=== PATIENT | male | born 2000 | race Caucasian/White ===

== ENCOUNTER 2020-01-18 10:16 | Outpatient (NON) | payer OTHER, SELFPAY ==
[2020-01-18 23:36] LABS: SARS-CoV-2 RNA PCR Negative
== END 2020-01-18 10:17 ==
LOC: ANHCOVIDDT 10:17
PROVIDERS: PCP Family Medicine; Visit Provider Physician Assistant Medical
DX: Z20.828 Contact with and (suspected) exposure to other viral communicable diseases (principal); J02.9 Acute pharyngitis, unspecified; R50.9 Fever, unspecified; R52 Pain, unspecified
CPT/HCPCS: 87635; C9803; U0003

== ENCOUNTER 2021-08-24 01:02 | Day surgery (SDC) | payer OTHER, SELFPAY ==
[2021-08-17 10:56] VITALS: BMI 44.4
--- NOTE | 2021-08-17 11:01 | PC.NURSE ---
Report to the Outpatient Waiting Room, entrance under the green pavilion located off [facility], at time 10am on date 08/24/21OR Time: 12pm - You and your visitor will be asked a series of questions to screen for COVID 19 for your protection. - Only one visitor is allowed at this time. - The patient visitor is requested to leave or wait in car when not with patient. - A mask is required within the hospital. Patients may have clear liquids (water, carbonated beverages, clear teas, apple juice) until 3 hours prior to surgery with a maximum of 20 ounces. - No food from midnight until time of surgery stop at 9am Take the following medications with a SIP of water the morning of surgery: Fluoxetine for anxiety if needed Medications to discontinue per physician __NA__ Date to take last dose__NA___ Please no make-up, nail mongolian, hairspray, perfume, deodorant, or body powder the day of surgery. No jewelry (including any body piercings) or valuables the day of surgery, leave them at home. Please take a shower or bath the night before, or the morning of, surgery with an antibacterial soap. Wear comfortable, loose fitting clothing. Children are encouraged to wear pajamas. - Jewelry must be removed prior to entering the operating room. Rings and piercings that are not removed may be cut off. - The hospital will not accept responsibility for valuables. - Please leave all valuables, including medications, at home the day of surgery. If you are going home after surgery, a licensed mail truck driver must drive you home. - NO public transportation without another adult. - We recommend that an adult stay with you for 24 hours following discharge. - We also recommend that you do not drive, make important decision, drink alcoholic beverages, or take any drugs that were not prescribed by your health care provider for at least 24 hours after your discharge time. For Pediatric surgeries, we recommend two adults accompany the child home (only one inside the building at this time). Follow any additional instructions given to you from your surgeon. If you or anyone in your household have experienced Covid symptoms in the past week, please notify your surgeon or the nurse liaison at the phone number below for possible testing. Telephone instructions given to patient Santiago and asked if any additional questions and then verbalized understanding. Patient advised to call surgeon office or pre surgery nurse liaison [phone] if any additional questions.
--- NOTE | 2021-08-23 10:03 | PM.IMHP ---
H&P: HPI History of Present Illness Date/Time: 08/23/21 10:03 Chief Complaint: Chronic tonsillitis recurrent tonsillitis Tonsil stones halitosis Narrative: patient presents for planned surgical procedures no change in symptoms no change in history PMFSH Family History Family History Father Hypertension Family history of elevated blood lipids Family history of malignant neoplasm of testis Grandparent Family history of elevated blood lipids Family history of cardiovascular disease Family history of malignant neoplasm Mother Family history of malignant neoplasm of breast Hypertension Grandparent Asthma Sibling Asthma Other Depression Social History Social History Smoking status: Never smoker Second hand tobacco smoke exposure: No Alcohol intake: never Substance use: never Substance use type: does not use Living arrangements: with family Spiritual care concerns: No Meds Home Medications and Allergies Home Medications Medication Instructions Recorded Confirmed Type fluoxetine 40 mg capsule 40 mg PO DAILY #90 caps 07/25/21 08/17/21 Rx Allergies Allergy/AdvReac Type Severity Reaction Status Date / Time No Known Allergies Allergy Verified 08/09/21 14:38 Exam Narrative: normal exam other than cryptic odd looking tonsils to 3+. Stones present. Assessment and Plan Assessment and plan (1) Recurrent tonsillitis: Code(s): J03.91 - Acute recurrent tonsillitis, unspecified Status: Acute Assessment and Plan: plan is for the operating room for tonsillectomy may look at adenoid pad while there if adenoid pad persists.? Risks were discussed including bleeding infection damage to surrounding structures need for further procedures postoperative bleeding 3-5% tooth pain ear pain throat pain trismus numbness loose dentition damage to any structure during the induction and or maintenance of anesthesia. (2) Halitosis: Code(s): R19.6 - Halitosis Status: Acute (3) Chronic tonsillitis: Code(s): J35.01 - Chronic tonsillitis Status: Acute (4) Tonsillolith: Code(s): J35.8 - Other chronic diseases of tonsils and adenoids Status: Acute
[2021-08-24] VITALS (8 sets, daily range): BP systolic 104–142; BP diastolic 58–94; PULSE 90–102; RESP 12–20; TEMP 36.8; O2SAT 94–100
--- NOTE | 2021-08-24 07:19 | WPDHPUPDATE1 ---
History and Physical Update Update Date/Time: 08/24/21 07:19 History and Physical has been reviewed, including an updated exam of the patient. There are NO changes in the patient's condition. Risks, benefits, and alternatives have been discussed and questions answered. Patient agrees to proceed with procedure.
[2021-08-24] MEDS: ACETAMINOPHEN 500 MG TABLET 1000 MG PO (11:03)
[2021-08-24] MEDS: LACTATED RINGERS 1,000 ML 30 ML IV CONT ×2 (11:15→13:10)
--- NOTE | 2021-08-24 11:43 | P.PNAN_ITS ---
Anes - Initial Pre Proc Eval Procedure: Operation Date: 08/24/21 12:30 Proposed Procedures p Tonsillectomy And Adenoidectomy - Landon Segovia MD Date/Time: 08/24/21 11:43 Surgeon: Landon Segovia MD Pre Op Diagnosis: Chronic Tonsillitis Patient Data Age: 21 Gender: M Height: 1.91 m Weight: 163.2 kg Last Vital Signs Temp 36.8 C 08/24/21 10:47 Pulse 102 H 08/24/21 10:47 Resp 16 08/24/21 10:47 BP 137/87 08/24/21 10:47 Pulse Ox 97 08/24/21 10:47 O2 Del Method Room Air 08/24/21 10:47 Allergies Allergy/AdvReac Type Severity Reaction Status Date / Time No Known Allergies Allergy Verified 08/24/21 10:58 Home Medications Medication Instructions Recorded Confirmed Type fluoxetine 40 mg capsule 40 mg PO DAILY #90 caps 07/25/21 08/24/21 Rx cetirizine 10 mg tablet (Zyrtec) 10 mg PO DAILY 08/24/21 08/24/21 History Patient hx anesthesia problems: none Family hx anesthesia problems: none Results Review: All pre-operative results and documents have been reviewed as part of the pre- operative evaluation. FORMERLY [facility] Past Medical History Medical History Morbid obesity Family History Family History Father Hypertension Family history of elevated blood lipids Family history of malignant neoplasm of testis Grandparent Family history of elevated blood lipids Family history of cardiovascular disease Family history of malignant neoplasm Mother Family history of malignant neoplasm of breast Hypertension Grandparent Asthma Sibling Asthma Other Depression Social History Social History Smoking status: Never smoker Second hand tobacco smoke exposure: No Alcohol intake: never Substance use: never Substance use type: does not use Living arrangements: with family Spiritual care concerns: No Anes - Eval Final PreProcedure Day of Procedure 08/24/21 11:43 Patient weight: morbidly obese Heart: regular rate and rhythm Lungs: clear to auscultation Airway: Mallampati scale class II Neurological: alert and oriented ASA classification: III Emergent: no Anesthetic plan: proceed Anesthesia type and monitoring: general ETT and standard monitoring Results Review: All pre-operative results and documents have been reviewed as part of the pre- operative evaluation. Informed Consent: The patient's anesthetic plan and its attendant risks and benefits were discussed with the patient/family/POA. Questions were solicited and answers provided to the satisfaction of the patient/family/POA.
--- NOTE | 2021-08-24 13:09 | W.PM.PROC2 ---
Procedure Note - Detailed Date of Procedure 08/24/21 Pre-op Diagnosis Chronic Tonsillitis chronic adenoiditis, recurrent tonsillitis Post-op Diagnosis Same Procedure Performed Tonsillectomy, adenoidectomy Surgeon Landon Segovia MD Anesthesia General Indications See above Findings Fairly large 2 to 3+ endophytic tonsils cryptic full of stones. Minimal bleeding intraoperatively. One central adenoid for on that had scant purulence on it this was burned down. Description of Procedure Patient identified consent verified. Patient brought operating. Time-out performed. General anesthesia induced endotracheal tube placed in airway. Patient then prepped and draped for aforementioned procedure. Second time-out performed. McIvor mouth gag inserted to reveal a narrow oral opening long AP diameter extended Bovie utilized. Tonsils described above. This was a bilateral procedure. Dissected in extracapsular plane using Bovie electrocautery at a setting of 10. Any bleeding vessels were prophylactically cauterized using suction Bovie electrocautery at a setting of 12. McIvor mouth gag then lowered and reopened to reveal no bleeding. When the McIvor mouth gag was open the 2nd time red rubber catheters were inserted transnasally suspending the soft palate anteriorly. They revealed a central adenoid from that had some scant mucoid purulence on it. This was burned down using suction Bovie electrocautery at a setting of 30. No bleeding. Red rubber catheters removed McIvor mouth gag again lowered and reopened to reveal no bleeding. Hemostasis at this point was excellent. McIvor mouth gag removed. Care the patient given Anesthesiology. Total blood loss 5 cc. I performed all dictated portions of the procedure. No complications. Estimated Blood Loss 5 Drains No Packing No Pathology Yes Complications No immediate complications Condition Stable Disposition PACU
[2021-08-24] MEDS: fentaNYL CITRATE INJ (*CRX) 100 MCG/2 ML VIAL 25 MCG IV PUSH ×3 (13:28→13:38)
[2021-08-24] MEDS: ONDANSETRON INJ 4 MG/2 ML VIAL IV PUSH (14:08)
[2021-08-24] MEDS: oxyCODONE HCL (*CRX) 5 MG TAB IR PO (14:30)
== END 2021-08-24 15:04 | disposition home or self-care (01) ==
PROVIDERS: PCP Family Medicine; Visit Provider Otolaryngology
PROC: (CPT 42821; principal; 2021-08-24 12:30)
DX: J35.03 Chronic tonsillitis and adenoiditis (principal); J35.8 Other chronic diseases of tonsils and adenoids; E66.01 Morbid (severe) obesity due to excess calories; Z68.42 Body mass index [BMI] 45.0-49.9, adult
CPT/HCPCS: 42821; 88304; A9270; J0330; J1100; J2250; J2405; J2704; J3010; J7120

== ENCOUNTER 2021-08-30 17:30 | Day surgery (SDC) | payer OTHER, SELFPAY ==
[2021-08-30] VITALS (9 sets, daily range): BP systolic 125–154; BP diastolic 48–104; PULSE 96–137; RESP 13–20; TEMP 35.8–36.4; O2SAT 94–100
--- NOTE | 2021-08-30 17:41 | ED.GENADULT ---
HPI - General Adult General Stated complaint: pain/bleeding s/p tonsillectomy Time Seen by Provider: 08/30/21 17:39 History of Present Illness HPI narrative: Patient is a 21-year-old male with history of tonsillectomy. She has had some recurrent bleeding over the last couple days. He has been evaluated by his ENT Dr. Segovia. He has been taking some ibuprofen for discomfort. A small clot was extracted yesterday but there is no evidence of hemorrhage. Patient reports increased bleeding today and contacted the ENT office. He is directed towards the ER as he will likely require an operative procedure. Reports pain is worse with swallowing but he also does not like to talk due to the discomfort. No additional complaints or issues related to the surgery. Related Data Home Medications Medication Instructions Recorded Confirmed cetirizine 10 mg tablet (Zyrtec) 10 mg PO DAILY 08/24/21 08/29/21 Allergies Allergy/AdvReac Type Severity Reaction Status Date / Time No Known Allergies Allergy Verified 08/29/21 13:26 Review of Systems Review of Systems: All systems reviewed & are unremarkable except as noted in HPI and below Constitutional: Constitutional: Denies chills and Denies fever(s) ENT: Reports sore throat Comments: Tonsillar bleeding. Respiratory: Respiratory: Denies cough and Denies dyspnea PMF Past Medical History Medical History Morbid obesity Surgical History Surgical History History of tonsillectomy 6.. Family History Family History Father Hypertension Family history of elevated blood lipids Family history of malignant neoplasm of testis Grandparent Family history of elevated blood lipids Family history of cardiovascular disease Family history of malignant neoplasm Mother Family history of malignant neoplasm of breast Hypertension Grandparent Asthma Sibling Asthma Other Depression Social History Social History Smoking status: Never smoker Second hand tobacco smoke exposure: No Alcohol intake: never Substance use: never Substance use type: does not use Gender identity (if verbalized by the patient): Male Sexual Orientation (if Verbalized by the Patient): Straight or Heterosexual Spiritual care concerns: No Exam Narrative: GENERAL: Well-appearing, well-nourished, and in no acute distress. HEAD: Normocephalic, atraumatic. ENT: Mucous membranes moist. Stigmata of bleeding right tonsil. Uvula midline nonedematous. NECK: Supple. CHEST: Clear to auscultation. No respiratory distress. HEART: Regular rate and rhythm. Normal peripheral pulses. EXTREMITIES: Normal range of motion. No edema. NEURO: Alert and oriented x3. PSYCH: Normal mood and affect. Course Course Emergency Course: Dr. Segovia at bedside with this physician and upon arrival of the patient. Evidence of bleeding from the right tonsil. He will take to the OR. He does not want any blood work only a IV site. Discharge Plan Discharge Clinical Impression: Hemorrhage of tonsil Patient Disposition: Still a Patient Condition: Stable Prescriptions: No Action cetirizine [Zyrtec] 10 mg Tablet 10 mg PO DAILY oxycodone 5 mg tablet 5 mg PO Q8H PRN (Reason: pain) Qty: 21 0RF fluoxetine 40 mg capsule 40 mg PO DAILY Qty: 90 0RF Cetacaine 2 %-2 %-14 % (200 mg/sec) aerosol,spray 1 spray topical .qd Qty: 5 0RF Rx Instructions: hold spray over site for 1 sec Follow-up/Referrals: Chelly Huang MD [Primary Care Provider] -
--- NOTE | 2021-08-30 17:45 | P.CONS_ITS ---
Assessment and Plan Assessment and plan (1) Hemorrhage of tonsil: Code(s): J35.8 - Other chronic diseases of tonsils and adenoids Status: Acute Assessment and Plan: Plan is for OR for control of post tonsillectomy hemorrhage. Risks discussed including further bleeding and damage to any structure involved in the procedure. HPI Data of Consult Date/Time: 08/30/21 17:45 Primary Care Provider: Chelly Huang MD Consult Narrative Reason for consult: Post tonsillectomy bleed Narrative: Santiago Ornelas is a 21 year old male s/p tonsillectomy, POD 6, bleeding from the right side. Presents for evaluation PMFSH Past Medical History Medical History Morbid obesity Surgical History Surgical History History of tonsillectomy 6.3 Family History Family History Father Hypertension Family history of elevated blood lipids Family history of malignant neoplasm of testis Grandparent Family history of elevated blood lipids Family history of cardiovascular disease Family history of malignant neoplasm Mother Family history of malignant neoplasm of breast Hypertension Grandparent Asthma Sibling Asthma Other Depression Social History Social History Smoking status: Never smoker Second hand tobacco smoke exposure: No Alcohol intake: never Substance use: never Substance use type: does not use Gender identity (if verbalized by the patient): Male Sexual Orientation (if Verbalized by the Patient): Straight or Heterosexual Spiritual care concerns: No Meds Home Medications and Allergies Home Medications Medication Instructions Recorded Confirmed Type fluoxetine 40 mg capsule 40 mg PO DAILY #90 caps 07/25/21 08/29/21 Rx cetirizine 10 mg tablet (Zyrtec) 10 mg PO DAILY 08/24/21 08/29/21 History oxycodone 5 mg tablet 5 mg PO Q8H PRN pain #21 tabs 08/24/21 08/29/21 Rx tdxvhofi-mlsbtkyjua-xsxolersce 2 1 spray topical .qd #5 grams 08/29/21 Rx %-2 %-14 % (200 mg/sec) topical spray (Cetacaine) Allergies Allergy/AdvReac Type Severity Reaction Status Date / Time No Known Allergies Allergy Verified 08/29/21 13:26 Exam Eyes: Other: Right tonsillar fossa bright red blood, clot very low
--- NOTE | 2021-08-30 17:51 | P.HP_ITS ---
H&P: HPI History of Present Illness Date/Time: 08/30/21 17:51 Chief Complaint: Post tonsillectomy hemmorhage Narrative: Presents for unplanned control of tonsil hemorrhage [facility]LY [facility] Past Medical History Medical History Morbid obesity Surgical History Surgical History History of tonsillectomy 6.. Family History Family History Father Hypertension Family history of elevated blood lipids Family history of malignant neoplasm of testis Grandparent Family history of elevated blood lipids Family history of cardiovascular disease Family history of malignant neoplasm Mother Family history of malignant neoplasm of breast Hypertension Grandparent Asthma Sibling Asthma Other Depression Social History Social History Smoking status: Never smoker Second hand tobacco smoke exposure: No Alcohol intake: never Substance use: never Substance use type: does not use Gender identity (if verbalized by the patient): Male Sexual Orientation (if Verbalized by the Patient): Straight or Heterosexual Spiritual care concerns: No Meds Home Medications and Allergies Home Medications Medication Instructions Recorded Confirmed Type fluoxetine 40 mg capsule 40 mg PO DAILY #90 caps 07/25/21 08/29/21 Rx cetirizine 10 mg tablet (Zyrtec) 10 mg PO DAILY 08/24/21 08/29/21 History oxycodone 5 mg tablet 5 mg PO Q8H PRN pain #21 tabs 08/24/21 08/29/21 Rx pashvfvt-deldbkpbwx-soazntcrle 2 1 spray topical .qd #5 grams 08/29/21 Rx %-2 %-14 % (200 mg/sec) topical spray (Cetacaine) Allergies Allergy/AdvReac Type Severity Reaction Status Date / Time No Known Allergies Allergy Verified 08/29/21 13:26 Exam 2 HENMT: Mouth/tongue images: 1. Other: Right tonsillar fossa bright red blood Assessment and Plan Assessment and plan (1) Hemorrhage of tonsil: Code(s): J35.8 - Other chronic diseases of tonsils and adenoids Status: Acute Assessment and Plan: OR for control of hemorrhage, see consult note for risks discussed
--- NOTE | 2021-08-30 17:52 | WPDHPUPDATE1 ---
History and Physical Update Update Date/Time: 08/30/21 17:52 History and Physical has been reviewed, including an updated exam of the patient. There are NO changes in the patient's condition. Risks, benefits, and alternatives have been discussed and questions answered. Patient agrees to proceed with procedure.
--- NOTE | 2021-08-30 18:04 | P.PNAN_ITS ---
Anes - Eval Final PreProcedure Day of Procedure 08/30/21 18:04 Patient weight: morbidly obese Heart: regular rate and rhythm Lungs: clear to auscultation Airway: Mallampati scale class II and other (no active bleeding) Neurological: alert and oriented Last oral intake: 6 hours (minimal ice cream - 3 bites) Emergent: yes Anesthetic plan: proceed Anesthesia type and monitoring: general ETT and standard monitoring Results Review: All pre-operative results and documents have been reviewed as part of the pre- operative evaluation. Informed Consent: The patient's anesthetic plan and its attendant risks and benefits were di scussed with the patient/family/POA. Questions were solicited and answers provided to the satisfaction of the patient/family/POA.
[2021-08-30] MEDS: LACTATED RINGERS 1,000 ML 30 ML IV CONT (18:07)
[2021-08-30] MEDS: fentaNYL CITRATE INJ (*CRX) 100 MCG/2 ML VIAL 25 MCG IV PUSH ×3 (18:44→18:54)
--- NOTE | 2021-08-30 18:52 | W.PM.PROC2 ---
Procedure Note - Detailed Date of Procedure 08/30/21 Pre-op Diagnosis pain/bleeding s/p tonsillectomy Post-op Diagnosis Same Procedure Performed Control of postoperative tonsillectomy hemorrhage Surgeon Landon Segovia MD Anesthesia General Indications See above Findings Bleeding from the right fossa all vessels and red areas cauterized Description of Procedure Patient identified consent verified in preop. Patient brought operating room. Time-out performed. General anesthesia use stage induced endotracheal tube secured. Patient prepped and draped performed procedure 2nd time-out performed. McIvor mouth gag inserted and opened to reveal blood in the right fossa this was suctioned small oozing vessels inferiorly cauterized with Bovie suction electrocautery at a setting of 12. McIvor mouth gag lowered for 30 seconds and reopened. No further bleeding excellent hemostasis total blood loss about 1 cc. Orogastric suction performed to remove any blood from the stomach. McIvor mouth gag removed. Care the patient turned Anesthesiology. If I performed all dictated portions of procedure. Complications none. Estimated Blood Loss -1.0 Drains No Packing No Pathology None sent Complications No immediate complications Condition Stable Disposition PACU
[2021-08-30] MEDS: oxyCODONE HCL (*CRX) 5 MG TAB IR PO (19:40)
== END 2021-08-30 20:12 | disposition home or self-care (01) ==
LOC: ANHED 17:51 → ANHSURGERY 17:53
PROVIDERS: Emergency Provider Emergency Medicine; PCP Family Medicine; Visit Provider Otolaryngology
PROC: (CPT 42960; principal; 2021-08-30 18:00)
DX: J95.830 Postprocedural hemorrhage of a respiratory system organ or structure following a respiratory system procedure (principal); Y83.8 Other surgical procedures as the cause of abnormal reaction of the patient, or of later complication, without mention of misadventure at the time of the procedure; E66.01 Morbid (severe) obesity due to excess calories; Z68.41 Body mass index [BMI] 40.0-44.9, adult
CPT/HCPCS: 42960; 99285; A9270; J0330; J1100; J2001; J2405; J2704; J3010; J7120

== ENCOUNTER 2023-02-12 09:19 | Outpatient (CLI) | payer OTHER, SELFPAY ==
[2023-02-12 12:01] LABS: Basophils Absolute Auto 0.1 K/mm3 (0.0-0.1); Basophils Percent Auto 0.8 % (0.2-1.2); Eosinophils Absolute Auto 0.1 K/mm3 (0-0.3); Eosinophils Percent Auto 0.9 % (0-4.4); Hematocrit 43.4 % (42.0-52.0); Immature Granulocyte Absolute 0.03 K/mm3 (0.00-0.031); Immature Granulocyte Percent A 0.4 % (0-0.5); Lymphocytes Absolute Auto 2.68 K/mm3 (0.9-3.2); Lymphocytes Percent Auto 35.8 % (18.3-44.2); Mean Corpuscular HGB Conc 32.3 g/dl (32-36); Mean Corpuscular Hemoglobin 27.1 pg (26-34); Mean Corpuscular Volume 84.1 fl (80-100); Mean Platelet Volume 11.7 fl (7.4-10.4); Monocytes Absolute Auto 0.5 K/mm3 (0.1-0.6); Monocytes Percent Auto 6.4 % (2.6-8.5); Neutrophils Absolute Auto 4.2 K/mm3 (1.3-6.7); Neutrophils Percent Auto 55.7 % (45.5-73.1); Platelet Count Result 272 k/mm3 (150-375); Red Blood Count 5.16 M/mm3 (4.6-6.20); White Blood Count 7.5 K/mm3 (4.5-10.0)
[2023-02-12 12:11] LABS: Alanine Aminotransferase 57 U/L (6-50); Albumin Level 4.3 g/dL (3.5-5.1); Alkaline Phosphatase 92 U/L (38-126); Anion Gap 5 mmol/L (8-16); Aspartate Amino Transferase 39 U/L (17-59); Bilirubin,Total 0.6 mg/dL (0.2-1.3); Blood Urea Nitrogen 17 mg/dL (9-20); Calcium 9.4 mg/dL (8.4-10.2); Carbon Dioxide 33 mmol/L (22-30); Chloride 103 mmol/L (98-107); Cholesterol 200 mg/dL (0-200); Estimated Glomerular Filt Rate > 60; Glucose 92 mg/dL (65-110); HDL Direct 32 mg/dL; Potassium 4.7 mmol/L (3.4-5.0); Sodium 141 mmol/L (137-145); Triglycerides 106 mg/dL (<150)
[2023-02-12 12:22] LABS: LDL Cholesterol Direct 133 mg/dL
[2023-02-12 13:17] LABS: Thyroid Stimulating Hormone Reflex 0.888 uIU/mL (0.465-4.68)
== END 2023-02-12 09:20 | disposition home or self-care (01) ==
LOC: ANHGOSHLAB 09:22
PROVIDERS: PCP Family Medicine; Visit Provider Physician Assistant
DX: R00.0 Tachycardia, unspecified (principal); F41.9 Anxiety disorder, unspecified; Z79.899 Other long term (current) drug therapy
CPT/HCPCS: 36415; 80053; 80061; 84443; 85025

== ENCOUNTER 2024-08-25 12:30 | Outpatient (CLI) | payer OTHER, SELFPAY ==
--- OUTSIDE RECORDS SUMMARY | 2024-08-25 12:33 | XMS_ITS | Referral Summary ---
Author Organization [facility] [address] [place] Address [address] [place] [id number] Care Team Providers Care Injury Prevention Coordinator Name Role Phone Chelly Huang MD Primary Care Provider + Allergies No known active allergies Medications FLUoxetine (PROzac) 40 mg capsule Take 40 mg by mouth daily 04/19/2021 Active Active Problems No known active problems Social History Tobacco Use Types Packs/Day Years Used Date Smoking Tobacco: Never Personal Safety Answer Date Recorded Getting School Help Needed Not on file 05/24 Sex and Gender Information Value Date Recorded Sex Assigned at Not on file Legal Sex Male 11:10 AM [employer] Gender Identity Not on file Sexual Orientation Not on file Last Filed Vital Signs Vital Sign Reading Time Taken Comments Blood Pressure 130/85 05/06/2021 1:37 PM [employer] Pulse 96 05/06/2021 1:37 PM [employer] Temperature 36.9 C (98.4 F) 05/06/2021 1:37 PM [employer] Respiratory Rate 16 05/06/2021 1:37 PM [employer] Oxygen Saturation 98% 05/06/2021 1:37 PM [employer] Inhaled Oxygen Concentration - - Weight 161.5 kg (356 lb) 05/06/2021 1:37 PM [employer] Height 190.5 cm (6' 3) 05/06/2021 1:37 PM [employer] Body Mass Index 44.5 05/06/2021 1:37 PM [employer] Plan of Treatment Not on file Insurance Care Teams Injury Prevention Coordinator Relationship Specialty Start Date End Date Chelly Huang MD PCP - General Family Medicine 05/06/21
--- OUTSIDE RECORDS SUMMARY | 2024-08-25 12:33 | XMS_ITS | Clinical Summary ---
Author Organization [facility] Address [address] [place] [address] Care Team Providers Care Eap Specialist Name Role Phone Unavailable Primary Care Provider Unavailabl e Source Comments [facility],non-owned Affiliates and Associated Physician Practices is amultiple site organization consisting of ambulatory clinics and hospital sitesin [place], [place], [place] and [place]. This disclosure is being madepursuant to the Care Everywhere program and may not contain all information available regarding this patient. Last updated 17.[facility] [employer] Allergies No known active allergies Immunizations Immunization Administration Dates Next Due INFLUENZA VACCINE, QUADR. (F LUZONE; FLULAVAL; FLUARIX; AFLURIA QUADRIVALENT; 6MO+), 0.5 ML (IIV4) 11/30/2019 Social History Tobacco Use Types Packs/Day Years Used Date Smoking Tobacco: Never Assessed Sex and Gender Information Value Date Recorded Sex Assigned at Not on file Legal Sex Male 1:49 PM CDT Gender Identity Not on file Sexual Orientation Not on file Plan of Treatment Health Maintenance Due Date Last Done Comments HIV SCREENING 2013 HPV VACCINE (1 - Male 3-dose series) 2013 HEPATITIS C SCREENING 02/09/2016 DTAP/TDAP/TD VACCINES (1 - Tdap) 2017 HEPATITIS B VACCINE (1 of 3 - 19+ 3-dose series) 2017 COVID-19 VACCINE (1 - 2023-2 5 season) 2023 DEPRESSION SCREENING 03/24/2024 INFLUENZA VACCINE (Season Ended) 2024 11/30/19 ZOSTER VACCINE (1 of 2) 02/14/2048 HIB VACCINE Aged Out No longer eligi ble based on patient's age to complete this topic MENINGOCOCCAL (Group B) VACC INE SHARED DECISION-MAKING Aged Out No longer eligibl e based on patient's age to complete this topic MENINGOCOCCAL GROUPS A/C/Y/W VACCINE Aged Out No longer eligible b ased on patient's age to complete this topic PNEUMOCOCCAL VACCINE Aged Out No long er eligible based on patient's age to complete this topic Insurance [facility]
--- OUTSIDE RECORDS SUMMARY | 2024-08-25 12:33 | XMS_ITS | Clinical Summary ---
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 Gender Identity Not on file Sexual Orientation Not on file Obstetrics History Last Filed Vital Signs Vital Sign Reading Time Taken Comments Blood Pressure 130/85 05/06/2021 1:37 PM MATERIALS SCHEDULER Pulse 96 05/06/2021 1:37 PM MATERIALS SCHEDULER Temperature 36.9 C (98.4 F) 05/06/2021 1:37 PM MATERIALS SCHEDULER Respiratory Rate 16 05/06/2021 1:37 PM MATERIALS SCHEDULER Oxygen Saturation 98% 05/06/2021 1:37 PM MATERIALS SCHEDULER Inhaled Oxygen Concentration - - Weight 161.5 kg (356 lb) 05/06/2021 1:37 PM MATERIALS SCHEDULER Height 190.5 cm (6' 3) 05/06/2021 1:37 PM MATERIALS SCHEDULER Body Mass Index 44.5 05/06/2021 1:37 PM MATERIALS SCHEDULER Plan of Treatment Health Maintenance Due Date Last Done Comments Depression Screening 1998 Hepatitis C Screening 1998 Varicella Vaccines (1 of 2 - 13+ 2-dose series) 2011 HPV Vaccines (1 - Male 3-dos e series) 2013 Hepatitis B Screening 02/14/2016 Regular Well Visit/Exam 18-64 02/14/2016 Covid-19 Vaccine (3 - 2023-2 5 season) 2023 06/06/2020, 05/16/2020 Influenza Vaccine (Season Ended) 2024 11/30/2019 DTaP/Tdap/Td Vaccine (2 - Td or Tdap) 11/04/2029 11/05/2019 Pneumococcal vaccine <65 Aged Out No longer eligible based on patient's age to complete this topic Insurance Care Teams Blanket Washer Relationship Specialty Start Date End Date Chelly Huang MD PCP - General Family Medicine 05/06/21
[2024-08-25 19:27] LABS: Basophils Absolute Auto 0.1 K/mm3 (0.0-0.1); Basophils Percent Auto 0.7 % (0.2-1.2); Eosinophils Percent Auto 0.5 % (0-4.4); Hematocrit 43.4 % (42.0-52.0); Hemoglobin 14.2 g/dL (14.0-18.0); Immature Granulocyte Absolute 0.03 K/mm3 (0.00-0.031); Immature Granulocyte Percent A 0.4 % (0-0.5); Lymphocytes Absolute Auto 2.47 K/mm3 (0.9-3.2); Lymphocytes Percent Auto 29.5 % (18.3-44.2); Mean Corpuscular HGB Conc 32.7 g/dl (32-36); Mean Corpuscular Hemoglobin 27.3 pg (26-34); Mean Corpuscular Volume 83.3 fl (80-100); Mean Platelet Volume 11.7 fl (7.4-10.4); Monocytes Absolute Auto 0.5 K/mm3 (0.1-0.6); Monocytes Percent Auto 6.1 % (2.6-8.5); Neutrophils Absolute Auto 5.3 K/mm3 (1.3-6.7); Neutrophils Percent Auto 62.8 % (45.5-73.1); Platelet Count Result 253 k/mm3 (150-375); Red Blood Count 5.21 M/mm3 (4.6-6.20); Red Cell Distribution Width 12.7 % (11.5-14.5); White Blood Count 8.4 K/mm3 (4.5-10.0)
[2024-08-25 21:13] LABS: Alanine Aminotransferase 68 U/L (6-50); Albumin Level 4.6 g/dL (3.5-5.1); Alkaline Phosphatase 82 U/L (38-126); Anion Gap 7 mmol/L (4-12); Aspartate Amino Transferase 45 U/L (17-59); Bilirubin,Total 0.8 mg/dL (0.2-1.3); Blood Urea Nitrogen 15 mg/dL (9-20); Calcium 9.8 mg/dL (8.4-10.2); Carbon Dioxide 29 mmol/L (22-30); Chloride 102 mmol/L (98-107); Cholesterol 218 mg/dL (0-200); Estimated Glomerular Filt Rate > 60; Glucose 86 mg/dL (65-110); HDL Direct 34 mg/dL; Potassium 4.7 mmol/L (3.4-5.0); Sodium 138 mmol/L (137-145); Total Protein 7.9 g/dL (6.3-8.2); Triglycerides 165 mg/dL (<150)
[2024-08-25 21:25] LABS: LDL Cholesterol Direct 132 mg/dL
[2024-08-25 21:44] LABS: Thyroid Stimulating Hormone 0.993 uIU/mL (0.465-4.680)
[2024-08-25 22:26] LABS: Hemoglobin A1C 4.9 % (<5.7)
== END 2024-08-25 12:31 | disposition home or self-care (01) ==
LOC: ANHGOSHLAB 12:31
PROVIDERS: PCP Family Medicine; Visit Provider Student in an Organized Health Care Education/Training Program
DX: R74.8 Abnormal levels of other serum enzymes (principal); R53.83 Other fatigue; G47.10 Hypersomnia, unspecified; R03.0 Elevated blood-pressure reading, without diagnosis of hypertension; E66.9 Obesity, unspecified; E66.01 Morbid (severe) obesity due to excess calories; Z83.3 Family history of diabetes mellitus
CPT/HCPCS: 36415; 80053; 80061; 82607; 83036; 84443; 85025